=== PATIENT | male | born 1975 | race Caucasian/White ===

== ENCOUNTER 2025-04-08 06:29 | Day surgery (SDC) | payer OTHER ==
[2025-04-07 12:34] VITALS: BMI 31.6
[2025-04-08] MEDS ORDERED: Lidocaine 1% PF 5 ML VIAL ONE (06:58)
[2025-04-08] MEDS ORDERED: PROPOFOL 40 ML ONE (06:58)
== END 2025-04-08 09:28 | disposition home or self-care (01) ==
LOC: SDC 06:29
PROVIDERS: ATTEND Student in an Organized Health Care Education/Training Program
PROC: 0DB78ZX Excision of Stomach, Pylorus, Via Natural or Artificial Opening Endoscopic, Diagnostic (ICD-10-PCS; principal; 2025-04-08)
PROC: 0DB18ZX Excision of Upper Esophagus, Via Natural or Artificial Opening Endoscopic, Diagnostic (ICD-10-PCS; principal; 2025-04-08)
DX: K29.50 Unspecified chronic gastritis without bleeding (principal); K20.90 Esophagitis, unspecified without bleeding; K31.A0 Gastric intestinal metaplasia, unspecified; K52.9 Noninfective gastroenteritis and colitis, unspecified; I51.89 Other ill-defined heart diseases; Z86.79 Personal history of other diseases of the circulatory system; Z87.891 Personal history of nicotine dependence; Z98.890 Other specified postprocedural states
CPT/HCPCS: 88305; J2704

== ENCOUNTER 2025-07-03 06:37 | Day surgery (SDC) | payer OTHER ==
[2025-07-02 12:05] VITALS: BMI 32.5
[2025-07-03] MEDS ORDERED: Lidocaine 1% PF 5 ML VIAL ONE (08:18)
[2025-07-03] MEDS ORDERED: Ketamine In 0.9 % NaCl 50 MG/5 ML SYRINGE ONE (08:20)
[2025-07-03] MEDS ORDERED: PROPOFOL 200 MG/20 ML VIAL ONE (08:39)
== END 2025-07-03 09:57 | disposition home or self-care (01) ==
LOC: SDC 06:37
PROVIDERS: ATTEND Student in an Organized Health Care Education/Training Program
PROC: 0DB38ZX Excision of Lower Esophagus, Via Natural or Artificial Opening Endoscopic, Diagnostic (ICD-10-PCS; principal; 2025-07-03)
DX: K21.00 Gastro-esophageal reflux disease with esophagitis, without bleeding (principal); K22.70 Barrett's esophagus without dysplasia; Z86.79 Personal history of other diseases of the circulatory system; Z87.891 Personal history of nicotine dependence; Z98.890 Other specified postprocedural states; Z79.899 Other long term (current) drug therapy
CPT/HCPCS: 88305; J2704; J3490